=== PATIENT | female | born 1985 | race Caucasian/White ===

== ENCOUNTER 2023-11-06 00:02 | Inpatient (IN) | payer BC ==
[2023-11-06] MEDS ORDERED: Phenylephrine HCl In 0.9% NaCl 1 MG/10 ML Syringe IVPUSH PRN (00:08)
[2023-11-06] MEDS ORDERED: ePHEDrine 50 MG/ML SDV IVPUSH PRN (00:08)
[2023-11-06] MEDS ORDERED: dexmedeTOMIDine HCl 200 MCG/2 ML SDV EPIDUR SCH (00:15)
[2023-11-06] MEDS ORDERED: Misoprostol 200 MCG Tab PO PRN (00:48)
[2023-11-06] MEDS ORDERED: Lidocaine 1% 50 ML MDV INJECT PRN (00:48)
[2023-11-06] MEDS ORDERED: Sodium Chloride 0.9% 10 ML Syringe FLUSH PRN (00:48)
[2023-11-06] MEDS ORDERED: Misoprostol 25 MCG (1/4 of 100 MCG) Tab VAG PRN (00:48)
[2023-11-06] MEDS ORDERED: Terbutaline 1 MG/ML SDV SUBCUT PRN (00:48)
[2023-11-06] MEDS ORDERED: Butorphanol 2 MG/ML SDV IVPUSH PRN (00:48)
[2023-11-06] MEDS ORDERED: Sodium Chloride 0.9% 20 ML SDV IV PRN (00:48)
[2023-11-06] MEDS ORDERED: Sodium Chloride 0.9% 2.5 ML Syringe FLUSH PRN (00:48)
[2023-11-06] MEDS ORDERED: Ondansetron 4 MG/2 ML SDV IVPUSH PRN (00:48)
[2023-11-06] MEDS ORDERED: Methylergonovine 0.2 MG/1 ML Amp IM PRN (00:48)
[2023-11-06] MEDS ORDERED: Tranexamic Acid IN NACL,ISO-OS 1,000 MG in Premix Bag 1 BAG IV PRN (00:48)
[2023-11-06] MEDS ORDERED: Carboprost Tromethamine 250 MCG/1 mL Vial IM PRN (00:48)
[2023-11-06] MEDS ORDERED: Water For Irrigation,Sterile 1,000 ML Container IRR PRN (00:48)
[2023-11-06 00:56] LABS: HEMATOCRIT 31.7 % (37.0-47.0); MEAN CORPUSCULAR HEMOGLOBIN 30.6 pg (28.0-32.0); MEAN CORPUSCULAR HGB CONC 34.7 g/dL (32.0-36.0); MEAN CORPUSCULAR VOLUME 88.1 fL (83.0-99.0); MEAN PLATELET VOLUME 9.5 fL (9.4-12.3); PLATELET COUNT,PLT 321 K/uL (150-400); WHITE BLOOD CELL COUNT,WBC 18.26 K/uL (3.9-11.3)
[2023-11-06] MEDS ORDERED: Oxytocin/0.9 % Sodium Chloride 30 UNIT/500 ML BAG IV SCH (01:00)
[2023-11-06] MEDS: Misoprostol 25 MCG (1/4 of 100 MCG) Tab VAG PRN (01:30)
[2023-11-06] MEDS: Lactated Ringers 1,000 ML IV SCH (02:40)
[2023-11-06] MEDS: Oxytocin/0.9 % Sodium Chloride 30 UNIT/500 ML BAG IV SCH (08:53)
[2023-11-06] MEDS: Ropivacaine HCl/PF 400 MG in Premix Bag 1 BAG EPIDUR SCH (13:48)
[2023-11-06] MEDS: fentaNYL 100 MCG/2 ML SDV ONE (15:52)
[2023-11-06] MEDS ORDERED: Docusate Sodium 100 MG Cap PO PRN (17:22)
[2023-11-06] MEDS ORDERED: oxyCODONE 5 MG Tab PO PRN (17:22)
[2023-11-06] MEDS ORDERED: Lanolin 100% Cream 7 GM Tube TOP PRN (17:22)
[2023-11-06 18:21] LABS: PH,UMBILICAL ARTERIAL 7.233 (7.18-7.38); PH,UMBILICAL VENOUS 7.299 (7.25-7.45)
[2023-11-07] MEDS: Ibuprofen 800 MG Tab PO PRN (04:14)
[2023-11-07] MEDS: Acetaminophen 500 MG Tab PO PRN (04:15)
[2023-11-07] MEDS: Benzocaine/Menthol 20%-0.5% Spray 78 GM Cannister TOP PRN (04:28)
[2023-11-07] MEDS: Witch Hazel Medicated Pads 40/Jar TOP PRN (04:28)
[2023-11-07 05:50] LABS: HEMATOCRIT 28.3 % (37.0-47.0); HEMOGLOBIN 9.3 g/dL (12.0-16.0)
== END 2023-11-07 20:45 | disposition home or self-care (01) | DRG 560 ==
LOC: MW.OB 00:02 → OBSVTOIN 17:22 → MW.OB 21:00
PROVIDERS: ADMIT Obstetrics & Gynecology; ATTEND Obstetrics & Gynecology
PROC: 10E0XZZ Delivery of Products of Conception, External Approach (ICD-10-PCS; principal; 2023-11-06)
PROC: 3E0R3BZ Introduction of Anesthetic Agent into Spinal Canal, Percutaneous Approach (ICD-10-PCS; 2023-11-06)
PROC: 00HU33Z Insertion of Infusion Device into Spinal Canal, Percutaneous Approach (ICD-10-PCS; 2023-11-06)
PROC: 10907ZC Drainage of Amniotic Fluid, Therapeutic from Products of Conception, Via Natural or Artificial Opening (ICD-10-PCS; 2023-11-06)
PROC: 3E033VJ Introduction of Other Hormone into Peripheral Vein, Percutaneous Approach (ICD-10-PCS; 2023-11-06)
DX: O77.0 Labor and delivery complicated by meconium in amniotic fluid (principal); Z37.0 Single live birth; Z3A.39 39 weeks gestation of pregnancy; Z96.643 Presence of artificial hip joint, bilateral; Z90.89 Acquired absence of other organs; Z90.49 Acquired absence of other specified parts of digestive tract
CPT/HCPCS: 01967; 36415; 51702; 59025; 59409; 82803; 85014; 85018; 85027; 86592; 86850; 86900; 86901; A9270-GY; J2590; J2795; J3010; J7120